=== PATIENT | male | born 1965 | race African-American/Black ===

== ENCOUNTER 2021-12-12 08:10 | Day surgery (SDC) | payer BC ==
[2021-12-08 15:27] VITALS: BMI 46.2
[2021-12-12] MEDS ORDERED: LIDOCAINE HCL/PF 2% SDV 5ML VIAL ONE (10:09)
[2021-12-12] MEDS ORDERED: ONDANSETRON 4 MG/2 ML VIAL ONE (10:10)
[2021-12-12] MEDS ORDERED: PROPOFOL 20 ML ONE ×4 (10:10)
[2021-12-12 10:58] VITALS: TEMP 97.2
[2021-12-12 11:09] VITALS: BP 139/85; PULSE 71
== END 2021-12-12 11:25 | disposition home or self-care (01) ==
LOC: FASU-ENDO 08:10
PROVIDERS: ATTEND Internal Medicine Gastroenterology
PROC: 0DBN8ZX Excision of Sigmoid Colon, Via Natural or Artificial Opening Endoscopic, Diagnostic (ICD-10-PCS; principal; 2021-12-12 10:06)
DX: Z12.11 Encounter for screening for malignant neoplasm of colon (principal); Z83.71 Family history of colonic polyps; D12.4 Benign neoplasm of descending colon; D12.5 Benign neoplasm of sigmoid colon; K57.30 Diverticulosis of large intestine without perforation or abscess without bleeding
CPT/HCPCS: 88305-TC